=== PATIENT | female | born 1935 ===

== ENCOUNTER 2018-07-12 11:26 | Inpatient (IN) | payer MEDICARE ==
[2018-07-12 12:10] VITALS: BMI 36.6
--- NOTE | 2018-07-12 12:22 | ED PDOC ---
Arrival/HPI - General Chief Complaint: Abnormal Skin Integrity Time Seen by Provider: 07/12/18 11:40 Historian: Family - History of Present Illness Narrative History of Present Illness (Text): 07/12/18 12:21 82 year old female, with past medical history of Alzheimer's, hypertension, menopause, and IVC filter presents to emergency department for rash on both sides of the face and back of the head for the past 4 days. Rash is wore on right. Family notes persistent scratching of face, mostly on right and reports giving her Benadryll and cortisone for the past few days with no significant improvement. Family denies any new food, new detergents or use of new face masks. They also state this has never happened before. HPI limited due to patient's dementia. They deny any complaints of weakness or numbness. No fevers No N/V No AMS Per family pt has been at baseline mentation and physical capacity. No fall or trauma no eye complaints PMD: Dr. José Time/Duration: Other (4 days ) Symptom Onset: Gradual Symptom Course: Unchanged Activities at Onset: Light Context: Home Past Medical History - Provider Review Nursing Documentation Reviewed: Yes - Reproductive Menopause: Yes - Cardiac Hx Cardiac Disorders: Yes Hx Hypertension: Yes - Neurological Hx Neurological Disorder: Yes Hx Alzheimer's Disease: Yes - Psychiatric Hx Substance Use: No Family/Social History - Physician Review Nursing Documentation Reviewed: Yes Family/Social History: Unknown Family HX Smoking Status: Never Smoked Hx Alcohol Use: No Hx Substance Use: No Allergies/Home Meds Allergies/Adverse Reactions: Allergies No Known Allergies Allergy (Verified 07/12/18 12:10) Review of Systems - Physician Review All systems were reviewed & negative as marked: Yes - Review of Systems Systems not reviewed;Unavailable: Dementia Skin: Rash (both sides of face and back of head, itchiness ) Physical Exam Vital Signs Reviewed: Yes Vital Signs Temp Pulse Resp BP Pulse Ox 07/12/18 11:27 97.8 F 68 18 127/70 100 Temperature: Afebrile Blood Pressure: Normal Pulse: Regular Respiratory Rate: Normal Appearance: Positive for: Well-Appearing, Non-Toxic, Comfortable Pain Distress: None Mental Status: Positive for: other (Alert and Oriented x 1) - Systems Exam Head: Present: Atraumatic, Normocephalic Pupils: Present: PERRL Extroacular Muscles: Present: EOMI. No: Gaze Palsy, Entrapment Conjunctiva: Present: Normal. No: Injected Ears: Present: Normal, NORMAL TM, Other (no vesicles). No: TM Bulging Mouth: Present: Moist Mucous Membranes Pharnyx: Present: Normal. No: ERYTHEMA, EXUDATE, TONSILS ENLARGED Nose (External): Present: Atraumatic, Other (no appreciable hutchinsons sign at this time). No: Abrasion, Contusion Nose (Internal): Present: Normal Inspection, No Active Bleeding, Moist Neck: Present: Normal Range of Motion. No: Meningeal Signs, MIDLINE TENDERNESS, JVD, Lymphadenopathy Respiratory/Chest: Present: Clear to Auscultation, Good Air Exchange. No: Respiratory Distress, Accessory Muscle Use Cardiovascular: Present: Regular Rate and Rhythm, Normal S1, S2. No: Murmurs Abdomen: No: Tenderness, Distention, Peritoneal Signs Back: Present: Normal Inspection. No: CVA Tenderness, Midline Tenderness Upper Extremity: Present: Normal Inspection. No: Cyanosis, Edema Lower Extremity: Present: Normal Inspection. No: Edema Neurological: Present: GCS=15, CN II-XII Intact, Speech Normal Skin: Present: Rashes (R sided and mildly L sided facial cluster/crop of vesicles on a red base. pruritic. No crepitus or fluctuance) Psychiatric: Present: Alert, Normal Insight, Normal Concentration, Other (Oriented x 1) Medical Decision Making ED Course and Treatment: 07/12/18 12:41 Impression: 82 year old female presents to emergency department for rash to both sides of the face and back of the head for the past 4 days. No meningeal signs. No AMS per family or change in physical capacity. No fall or trauma. Likely disseminated herpes zoster given B/L appearance. No signs of herpes zoster oticus / opthalmicus at this time. Given age, ALHZD, RF and disseminated likely will require obs. Pt and family agreeable to plan. Plan: -- Benadryl -- Zovirax -- Reassess and disposition Prior Visits: Notes and results from previous visits were reviewed. Progress Notes: 07/12/18 13:09 pending labs, pt in [facility] 07/12/18 13:47 labs unremarkable 3 dermatome involvement appreciate consult w/ Dr. espinoza: to admit to his service for disseminated zoster pt in NAD family and pt agreeable to plan - Scribe Statement The provider has reviewed the documentation as recorded by the Scribe Mariya Holguin All medical record entries made by the Scribe were at my direction and personally dictated by me. I have reviewed the chart and agree that the record accurately reflects my personal performance of the history, physical exam, medical decision making, and the department course for this patient. I have also personally directed, reviewed, and agree with the discharge instructions and disposition. Disposition/Present on Arrival - Present on Arrival Any Indicators Present on Arrival: No History of DVT/PE: No History of Uncontrolled Diabetes: No Urinary Catheter: No History of Decub. Ulcer: No History Surgical Site Infection Following: None - Disposition Have Diagnosis and Disposition been Completed?: Yes Diagnosis: Herpes zoster Disposition: HOSPITALIZED Disposition Time: 13:24 Patient Problems: Current Active Problems Problem Status Onset Herpes zoster Acute Condition: STABLE Discharge Instructions (ExitCare): Shingles (ED) Referrals: Dahlia José MD [Primary Care Provider] - Follow up with primary Forms: [employer] ([place]uan)
[2018-07-12] MEDS ORDERED: DiphenhydrAMINE 12.5 mg/5 ml LIQ UD (5 ml) PO STA (12:25)
[2018-07-12] MEDS ORDERED: ACYCLOVIR IV ONE (12:30)
[2018-07-12] MEDS ORDERED: SODIUM CHLORIDE 0.9% IV ONE (12:30)
[2018-07-12 13:28] LABS: BASO # 0.02 K/mm3 (0.0-2.0); BASO % 0.3 % (0.0-3.0); EOS # 0.2 (0.0-0.7); EOS % 2.7 % (1.5-5.0); HEMOGLOBIN 13.6 g/dL (12.0-16.0); LYMPH # 2.2 (1.2-3.4); MEAN CELL VOLUME 96.2 fl (80.0-105.0); MEAN CORPUSCULAR HEMOGLOBIN 32.2 pg (25.0-35.0); MEAN CORPUSCULAR HGB CONC 33.5 g/dl (31.0-37.0); MEAN PLATELET VOLUME 10.1 fl (7.0-11.0); MONO # 0.6 (0.1-0.6); MONO % 8.2 % (1.0-6.0); RBC 4.22 10^6/uL (3.5-6.1); RED CELL DISTRIBUTION WIDTH 14.5 % (11.5-14.5); WHITE BLOOD COUNT 7.7 10^3/uL (4.5-11.0)
[2018-07-12 13:40] LABS: ALBUMIN 3.9 g/dL (3.0-4.8); ALT/SGPT 14 U/L (7-56); AST/SGOT 22 U/L (14-36); BLOOD UREA NITROGEN 12 mg/dL (7-21); CALCIUM 9.7 mg/dL (8.4-10.5); GFR NON-AFRICAN AMERICAN > 60
--- NOTE | 2018-07-12 14:57 | CP.PCM.HP ---
<Ehsan Motley - Last Filed: 07/12/18 15:10> History of Present Illness - History of Present Illness History of Present Illness: Ehsan Motley, PGY1 Hospital H&P This is an 82 year old female with PMH of history of DVT on eliquis, IVC filter 2014, severe alzheimer's dementia, chronic constipation, HTN presenting to the hospital for 4 day history of B/L skin rash. Patient is nonverbal at baseline and has 24 hour care by family. Daughter is primary ambulatory care coordinator and report's patient developed right sided erythematous vesicular crusty rash 4 days ago which progressively spread to both sides of the face and the posterior neck. Crusting resolved into erythematous lesions. Daughter states patient has never had these symptoms before and has unknown history of chickenpox. Daughter states patient has not had recent travel, recent sickness, sick contacts at home, fevers, vomiting and diarrhea. 12 point ROS limited due to patient status. PMD: Dr. Davies PMH: history of DVT on eliquis, IVC filter 2014, severe alzheimer's dementia, chronic constipation, HTN SH: denies drinking, smoking, and drugs SX: IVC filter in 2015 All: NKDA Meds: eliquis 5mg bid, asa 81mg, digoxin 125mcg, pepcid 20mg, lactulose 10mg, memantine, lopressor 25mg bid, omega 3, risperdal 0.25mg bid FH: father had esophageal cancer, alzheimer's Present on Admission - Present on Admission Any Indicators Present on Admission: No Past Patient History - Past Social History Smoking Status: Never Smoked - CARDIAC Hx Cardiac Disorders: Yes Hx Hypertension: Yes - NEUROLOGICAL Hx Neurological Disorder: Yes Hx Alzheimer's Disease: Yes - PSYCHIATRIC Hx Substance Use: No - SURGICAL HISTORY Hx Surgeries: No Meds Allergies/Adverse Reactions: Allergies Allergy/AdvReac Type Severity Reaction Status Date / Time No Known Allergies Allergy Verified 07/12/18 12:10 Physical Exam - Constitutional Appears: No Acute Distress, Confused - Head Exam Head Exam: ATRAUMATIC, NORMAL INSPECTION - Eye Exam Eye Exam: PERRL Pupil Exam: PERRL - ENT Exam ENT Exam: Mucous Membranes Moist Additional comments: R > L facial erythematous confluent lesions on papular base. Non draining/bleeding. Lesions extend to posterior neck. No crusting noted. - Respiratory Exam Respiratory Exam: Accessory Muscle Use, Clear to Auscultation Bilateral. absent: Wheezes, Respiratory Distress - Cardiovascular Exam Cardiovascular Exam: REGULAR RHYTHM, +S1, +S2 - GI/Abdominal Exam GI & Abdominal Exam: Soft. absent: Guarding, Hernia, Tenderness Additional comments: globular abdomen - Extremities Exam Extremities exam: Positive for: pedal pulses present. Negative for: calf tenderness, tenderness Additional comments: +1 B/L LE swelling - Neurological Exam Neurological exam: Alert, CN II-XII Intact, Oriented x3 - Skin Skin Exam: Dry, Warm Results - Vital Signs Recent Vital Signs: Last Vital Signs Temp 97.8 F 07/12/18 11:27 Pulse 68 07/12/18 11:27 Resp 18 07/12/18 11:27 BP 127/70 07/12/18 11:27 Pulse Ox 100 07/12/18 11:27 - Labs Result Diagrams: 07/12/18 13:24 07/12/18 13:24 Labs: Laboratory Results - last 24 hr 07/12/18 07/12/18 13:24 13:24 WBC 7.7 RBC 4.22 Hgb 13.6 Hct 40.6 MCV 96.2 MCH 32.2 MCHC 33.5 RDW 14.5 Plt Count 274 MPV 10.1 Neut % (Auto) 59.8 Lymph % (Auto) 29.0 [place] % (Auto) 8.2 H Eos % (Auto) 2.7 Baso % (Auto) 0.3 Lymph # (Auto) 2.2 [place] # (Auto) 0.6 Eos # (Auto) 0.2 Baso # (Auto) 0.02 Absolute Neuts (auto) 4.61 Sodium 138 Potassium 4.4 Chloride 101 Carbon Dioxide 27 Anion Gap 15 BUN 12 Creatinine 0.6 L Est GFR ( Amer) > 60 Est GFR (Non-Af Amer) > 60 Random Glucose 113 H Calcium 9.7 Total Bilirubin 0.3 AST 22 ALT 14 Alkaline Phosphatase 97 Total Protein 7.6 Albumin 3.9 Globulin 3.7 Albumin/Globulin Ratio 1.0 L Assessment & Plan - Assessment and Plan (Free Text) Assessment: This is an 82 year old female with PMH of history of DVT on eliquis, IVC filter 2014, severe alzheimer's dementia, chronic constipation, HTN presenting to the hospital for 4 day history of B/L skin rash. Plan: Facial rash -consider shingles vs dermatitis -start acyclovir -start vancomycin -procal pending -ID on consult -afebrile, no WBC noted Hx of DVT -continue eliquis Hx of HTN -continue loppressor Hx of Alzheimer's -continue memantine Hx of Constipation -continue lactulose DVT PPX Patient seen and case discussed with attending, Dr. Garduno <Macie Garduno - Last Filed: 07/13/18 16:01> Results - Vital Signs Recent Vital Signs: Last Vital Signs Temp 99.0 F 07/13/18 14:00 Pulse 98 H 07/13/18 14:00 Resp 20 07/13/18 14:00 BP 120/70 07/13/18 14:00 Pulse Ox 98 07/13/18 14:00 - Labs Result Diagrams: 07/13/18 06:30 07/13/18 06:30 Labs: Laboratory Results - last 24 hr 07/12/18 07/13/18 07/13/18 13:24 06:30 06:30 WBC 7.3 RBC 3.84 Hgb 12.1 Hct 36.7 MCV 95.6 MCH 31.5 MCHC 33.0 RDW 14.6 H Plt Count 271 MPV 10.0 Neut % (Auto) 66.8 Lymph % (Auto) 25.2 [place] % (Auto) 5.8 Eos % (Auto) 1.9 Baso % (Auto) 0.3 Lymph # (Auto) 1.8 [place] # (Auto) 0.4 Eos # (Auto) 0.1 Baso # (Auto) 0.02 Absolute Neuts (auto) 4.87 Sodium 138 Potassium 4.1 Chloride 104 Carbon Dioxide 28 Anion Gap 11 BUN 13 Creatinine 0.6 L Est GFR ( Amer) > 60 Est GFR (Non-Af Amer) > 60 Random Glucose 112 H Calcium 8.9 Phosphorus 3.9 Magnesium 1.8 Total Bilirubin 0.3 AST 20 ALT 18 Alkaline Phosphatase 86 Total Protein 6.4 Albumin 3.0 Globulin 3.3 Albumin/Globulin Ratio 0.9 L Procalcitonin < 0.05 L TSH 3rd Generation 07/13/18 06:30 WBC RBC Hgb Hct MCV MCH MCHC RDW Plt Count MPV Neut % (Auto) Lymph % (Auto) [place] % (Auto) Eos % (Auto) Baso % (Auto) Lymph # (Auto) [place] # (Auto) Eos # (Auto) Baso # (Auto) Absolute Neuts (auto) Sodium Potassium Chloride Carbon Dioxide Anion Gap BUN Creatinine Est GFR ( Amer) Est GFR (Non-Af Amer) Random Glucose Calcium Phosphorus Magnesium Total Bilirubin AST ALT Alkaline Phosphatase Total Protein Albumin Globulin Albumin/Globulin Ratio Procalcitonin TSH 3rd Generation 0.23 L Attending/Attestation - Attestation I have personally seen and examined this patient.: Yes I have fully participated in the care of the patient.: Yes I have reviewed all pertinent clinical information: Yes Notes (Text): Attending note: Patient seen and examined with resident in ER. Patient's daughter by the bedside. Patient has advanced dementia. History from patient's daughter Patient does not communicate. This is an 82 year old female with PMH of history of DVT on eliquis, IVC filter 2014, severe alzheimer's dementia, chronic constipation, HTN presenting to the hospital for 4 day history of B/L skin rash. 1. Bilateral facial cellulitis; according to patient's daughter patient has vesicles and crusting. Started on IV acyclovir. Placed on contact and airborne precautions. ID evaluation requested. Some 2. Cellulitis ; continue IV vancomycin . 3. Dementia; patient does not communicate . Daughter is the caregiver. Continue Namenda. 4. A. fib; continue Eliquis. Continue aspirin, metoprolol and digoxin. Monitor patient closely. Upon discharge patient will follow up with PMD Dr. José. 07/13/18 16:00
[2018-07-12] MEDS ORDERED: Vancomycin 1gm in NS 250ml 1 GM/250 ML BAG IVPB SCH (15:15)
[2018-07-12] MEDS: Omega-3-Acid Ethyl Esters 1 GM Cap PO SCH (17:17)
[2018-07-12] MEDS ORDERED: Influenza Vaccine 60 mcg/0.5 mL SYR (4YR UP) IM ONE (17:25)
[2018-07-12] MEDS ORDERED: Pneumococcal 23-Valent Vaccine IM ONE (17:25)
[2018-07-13 07:52] LABS: BASO # 0.02 K/mm3 (0.0-2.0); BASO % 0.3 % (0.0-3.0); EOS # 0.1 (0.0-0.7); EOS % 1.9 % (1.5-5.0); HEMOGLOBIN 12.1 g/dL (12.0-16.0); LYMPH # 1.8 (1.2-3.4); LYMPH % 25.2 % (22.0-35.0); MEAN CELL VOLUME 95.6 fl (80.0-105.0); MEAN CORPUSCULAR HEMOGLOBIN 31.5 pg (25.0-35.0); MONO # 0.4 (0.1-0.6); MONO % 5.8 % (1.0-6.0); RBC 3.84 10^6/uL (3.5-6.1); RED CELL DISTRIBUTION WIDTH 14.6 % (11.5-14.5); WHITE BLOOD COUNT 7.3 10^3/uL (4.5-11.0)
[2018-07-13 08:12] LABS: ALB/GLOB RATIO 0.9 (1.1-1.8); ALT/SGPT 18 U/L (7-56); AST/SGOT 20 U/L (14-36); BLOOD UREA NITROGEN 13 mg/dL (7-21); CALCIUM 8.9 mg/dL (8.4-10.5); GFR NON-AFRICAN AMERICAN > 60
[2018-07-13] MEDS ORDERED: Vancomycin 1gm in NS 250ml 1 GM/250 ML BAG IVPB SCH (10:00)
[2018-07-13] MEDS ORDERED: Magnesium Citrate Oral SOL (300 ml) PO ONE ×2 (10:55→13:00)
[2018-07-13] MEDS: Digoxin 125 mcg (0.125 mg) Tab PO SCH (10:58)
[2018-07-13] MEDS: Omega-3-Acid Ethyl Esters 1 GM Cap PO SCH ×2 (11:00→19:11)
--- NOTE | 2018-07-13 11:20 | CP.PCM.CON ---
History of Present Illness - History of Present Illness History of Present Illness: 82 year old female with PMH of DVT S/P IVC filter placement, severe dementia, chronic constipation, HTN, obesity with BMI 37 was brought in to [facility] [place] because of a rash that started on the right side of the face of the patient. As per family and architecture manager, they noticed that the rash eventually developed into some fluid filled lesions and reached the back of her head, and possible to other side of the face. She had no fever at home but developed a low grade fever during this admission. She has no cough, no vomiting, no loss of consciousness, no diarrhea as per the family. Infectious Diseases consult is requested to further evaluate and manage. Full ROS is unobtainable because of the patient's dementia. Review of Systems - Review of Systems All systems: reviewed and no additional remarkable complaints except (as per HPI) Past Patient History - Past Social History Smoking Status: Never Smoked - CARDIAC Hx Cardiac Disorders: Yes Hx Hypercholesterolemia: Yes Hx Hypertension: Yes Other/Comment: dvt on eliquis ivc filter 2014 - PULMONARY Hx Respiratory Disorders: No - NEUROLOGICAL Hx Neurological Disorder: Yes Hx Alzheimer's Disease: Yes Hx Dementia: Yes - HEENT Hx HEENT Problems: Yes Hx Difficulty Chewing: Yes (eats puree diet) - RENAL Hx Chronic Kidney Disease: No - ENDOCRINE/METABOLIC Hx Endocrine Disorders: No - HEMATOLOGICAL/ONCOLOGICAL Hx Blood Disorders: No - INTEGUMENTARY Hx Dermatological Problems: Yes Other/Comment: right side facial red vesicular crusty rash started 4 days ago and spread to left side of face and back of neck, crusty rash now red lesions, rash is itchy - MUSCULOSKELETAL/RHEUMATOLOGICAL Hx Falls: No - GASTROINTESTINAL Hx Gastrointestinal Disorders: Yes (obese, chronic constipation) Other/Comment: eats puree diet - GENITOURINARY/GYNECOLOGICAL Hx Genitourinary Disorders: Yes Hx Incontinence: Yes (at times of urine and stool) Other/Comment: pt wears depends for accidents, family asks her if she has to go to the bathroom and they take her, sometimes she goes and sometimes she doesn't - PSYCHIATRIC Hx Substance Use: No - SURGICAL HISTORY Hx Surgeries: Yes (ivc filter 2014) Meds Allergies/Adverse Reactions: Allergies Allergy/AdvReac Type Severity Reaction Status Date / Time No Known Allergies Allergy Verified 07/12/18 12:10 - Medications Medications: Current Medications Apixaban (Eliquis) 5 mg PO BID [facility]; Protocol Last Admin: 07/12/18 17:17 Dose: 5 mg Aspirin (Aspirin Chewable) 81 mg PO DAILY [facility] Digoxin (Digoxin) 0.125 mg PO DAILY [facility] Famotidine (Pepcid) 20 mg PO DAILY [facility] Acyclovir 750 mg/ Sodium (Chloride) 100 mls @ 100 mls/hr IV Q8 [facility]; Protocol Last Admin: 07/13/18 05:28 Dose: 100 mls/hr Vancomycin HCl (Vancomycin 1gm) 1 gm in 250 mls @ 167 mls/hr IVPB DAILY [facility]; Protocol Last Admin: 07/12/18 17:17 Dose: 167 mls/hr Lactulose (Enulose) 10 gm PO DAILY [facility] Metoprolol Tartrate (Lopressor) 25 mg PO BID [facility] Last Admin: 07/12/18 17:17 Dose: 25 mg Levocetirizine Dihydrochloride [ Xyzal] 5 Mg (Home Med) 5 mg PO DAILY [facility] Memantine Hcl [ Memantine Hcl Er] 28 Mg (Home Med) 28 mg PO DAILY [facility] Aruum-2-Qpah Ethyl Esters (Lovaza) 1 gm PO BID [facility] Last Admin: 07/12/18 17:17 Dose: 1 gm Risperidone (Risperdal Tab) 0.25 mg PO BID [facility]; Protocol Last Admin: 07/12/18 17:17 Dose: 0.25 mg Physical Exam - Constitutional Appears: Chronically Ill - Head Exam Head Exam: NORMAL INSPECTION Additional comments: eye area to the anabaptist with erythematous rash, with some open lesions, no vesicles noted, more on the right side than the left side - Neck Exam Neck exam: Negative for: Lymphadenopathy, Meningismus - Respiratory Exam Respiratory Exam: Decreased Breath Sounds - Cardiovascular Exam Cardiovascular Exam: +S1, +S2 - GI/Abdominal Exam GI & Abdominal Exam: Soft. absent: Tenderness Results - Vital Signs Recent Vital Signs: Last Vital Signs Temp 100.5 F H 07/13/18 06:00 Pulse 114 H 07/13/18 06:00 Resp 20 07/13/18 06:00 BP 115/50 L 07/13/18 06:00 Pulse Ox 95 07/13/18 06:00 - Labs Result Diagrams: 07/13/18 06:30 07/13/18 06:30 Labs: Laboratory Results - last 24 hr 04/09/2407/12/18 07/12/18 13:24 13:24 13:24 WBC 7.7 RBC 4.22 Hgb 13.6 Hct 40.6 MCV 96.2 MCH 32.2 MCHC 33.5 RDW 14.5 Plt Count 274 MPV 10.1 Neut % (Auto) 59.8 Lymph % (Auto) 29.0 [place] % (Auto) 8.2 H Eos % (Auto) 2.7 Baso % (Auto) 0.3 Lymph # (Auto) 2.2 [place] # (Auto) 0.6 Eos # (Auto) 0.2 Baso # (Auto) 0.02 Absolute Neuts (auto) 4.61 Sodium 138 Potassium 4.4 Chloride 101 Carbon Dioxide 27 Anion Gap 15 BUN 12 Creatinine 0.6 L Est GFR ( Amer) > 60 Est GFR (Non-Af Amer) > 60 Random Glucose 113 H Calcium 9.7 Total Bilirubin 0.3 AST 22 ALT 14 Alkaline Phosphatase 97 Total Protein 7.6 Albumin 3.9 Globulin 3.7 Albumin/Globulin Ratio 1.0 L Procalcitonin < 0.05 L Assessment & Plan - Assessment and Plan (Free Text) Plan: Assessment consider facial skin and skin structure infection, R/O viral enxanthem, R/O herpes zoster DVT S/P IVC filter placement severe dementia chronic constipation HTN obesity with BMI 37 Plan Started Vancomycin and Acyclovir and patient is on airborne precautions for now; will get VZV IgG will monitor clinical response, check blood cx
[2018-07-13] MEDS: MEMANTINE HCL 28 MG PO SCH (13:10)
[2018-07-13] MEDS: Levocetirizine Dihydrochloride [Xyzal] 5 MG (HOME MED) PO SCH (13:10)
--- NOTE | 2018-07-13 16:22 | CP.PCM.PN ---
<Ehsan Motley - Last Filed: 07/13/18 16:17> Subjective - Date & Time of Evaluation Date of Evaluation: 07/13/18 Time of Evaluation: 09:30 - Subjective Subjective: Ehsan Motley PGY1 Medicine Progress Note Patient seen and examined at bedside this morning. No acute events reported overnight. Patient is nonverbal at baseline and ROS is limited at this time. Objective - Vital Signs/Intake and Output Vital Signs (last 24 hours): Temp Pulse Resp BP Pulse Ox 99.0 F 98 H 20 120/70 98 07/13/18 14:00 07/13/18 14:00 07/13/18 14:00 07/13/18 14:00 07/13/18 14:00 Intake and Output: 07/13/18 07/13/18 06:59 18:59 Intake Total 740 Balance 740 - Medications Medications: Current Medications Apixaban (Eliquis) 5 mg PO BID [facility]; Protocol Last Admin: 07/13/18 10:59 Dose: 5 mg Aspirin (Aspirin Chewable) 81 mg PO DAILY [facility] Last Admin: 07/13/18 10:58 Dose: 81 mg Digoxin (Digoxin) 0.125 mg PO DAILY [facility] Last Admin: 07/13/18 10:58 Dose: 0.125 mg Famotidine (Pepcid) 20 mg PO DAILY [facility] Last Admin: 07/13/18 11:00 Dose: 20 mg Acyclovir 750 mg/ Sodium (Chloride) 100 mls @ 100 mls/hr IV Q8 [facility]; Protocol Last Admin: 07/13/18 15:48 Dose: 100 mls/hr Vancomycin HCl (Vancomycin 1gm) 1 gm in 250 mls @ 167 mls/hr IVPB BID [facility]; Protocol Last Admin: 07/13/18 11:01 Dose: 167 mls/hr Lactulose (Enulose) 10 gm PO DAILY [facility] Last Admin: 07/13/18 10:56 Dose: 10 gm Metoprolol Tartrate (Lopressor) 25 mg PO BID [facility] Last Admin: 07/13/18 10:59 Dose: 25 mg Levocetirizine Dihydrochloride [ Xyzal] 5 Mg (Home Med) 5 mg PO DAILY [facility] Last Admin: 07/13/18 13:10 Dose: 5 mg Memantine Hcl [ Memantine Hcl Er] 28 Mg (Home Med) 28 mg PO DAILY [facility] Last Admin: 07/13/18 13:10 Dose: 28 mg Fbheh-9-Vomg Ethyl Esters (Lovaza) 1 gm PO BID [facility] Last Admin: 07/13/18 11:00 Dose: 1 gm Risperidone (Risperdal Tab) 0.25 mg PO BID [facility]; Protocol Last Admin: 07/13/18 11:01 Dose: 0.25 mg - Labs Labs: 07/13/18 06:30 07/13/18 06:30 Physical Exam - Constitutional Appears: No Acute Distress, Confused - Head Exam Head Exam: ATRAUMATIC, NORMAL INSPECTION - Eye Exam Eye Exam: PERRL Pupil Exam: PERRL - ENT Exam ENT Exam: Mucous Membranes Moist Additional comments: R > L facial erythematous confluent lesions on papular base. Non draining/bleeding. Lesions extend to posterior neck. No crusting noted. - Respiratory Exam Respiratory Exam: Accessory Muscle Use, Clear to Auscultation Bilateral. absent: Wheezes, Respiratory Distress - Cardiovascular Exam Cardiovascular Exam: REGULAR RHYTHM, +S1, +S2 - GI/Abdominal Exam GI & Abdominal Exam: Soft. absent: Guarding, Hernia, Tenderness Additional comments: globular abdomen - Extremities Exam Extremities exam: Positive for: pedal pulses present. Negative for: calf tenderness, tenderness Additional comments: +1 B/L LE swelling - Neurological Exam Neurological exam: Alert, CN II-XII Intact, Oriented x3 - Skin Skin Exam: Dry, Warm Assessment and Plan - Assessment and Plan (Free Text) Assessment: This is an 82 year old female with PMH of history of DVT on eliquis, IVC filter 2014, severe alzheimer's dementia, chronic constipation, HTN presenting to the hospital for 4 day history of B/L skin rash. Plan: Facial rash -consider facial skin infection, rule out herpes zoster, viral exanthem -continue vancomycin and acyclovir day 2 -VZW IgG pending -blood culture pending -procal low -ID on consult -Tmax of 100.5F overnight, no WBC count noted -hydrocortisone cream on rash Abnormal Thyroid -Low TSH -Free T4 pending Hx of DVT -continue eliquis Hx of HTN -continue loppressor Hx of Alzheimer's -continue memantine Hx of Constipation -continue lactulose -started mag citrate DVT PPX Patient seen and case discussed with attending, Dr. Garduno <Macie Garduno - Last Filed: 07/13/18 16:32> Objective - Vital Signs/Intake and Output Vital Signs (last 24 hours): Temp Pulse Resp BP Pulse Ox 99.0 F 98 H 20 120/70 98 07/13/18 14:00 07/13/18 14:00 07/13/18 14:00 07/13/18 14:00 07/13/18 14:00 Intake and Output: 07/13/18 07/13/18 06:59 18:59 Intake Total 740 Balance 740 - Medications Medications: Current Medications Apixaban (Eliquis) 5 mg PO BID [facility]; Protocol Last Admin: 07/13/18 10:59 Dose: 5 mg Aspirin (Aspirin Chewable) 81 mg PO DAILY [facility] Last Admin: 07/13/18 10:58 Dose: 81 mg Digoxin (Digoxin) 0.125 mg PO DAILY [facility] Last Admin: 07/13/18 10:58 Dose: 0.125 mg Famotidine (Pepcid) 20 mg PO DAILY [facility] Last Admin: 07/13/18 11:00 Dose: 20 mg Hydrocortisone (Hydrocortisone 0.5%) 0 gm TOP BID [facility] Acyclovir 750 mg/ Sodium (Chloride) 100 mls @ 100 mls/hr IV Q8 [facility]; Protocol Last Admin: 07/13/18 15:48 Dose: 100 mls/hr Vancomycin HCl (Vancomycin 1gm) 1 gm in 250 mls @ 167 mls/hr IVPB BID [facility]; Protocol Last Admin: 07/13/18 11:01 Dose: 167 mls/hr Lactulose (Enulose) 10 gm PO DAILY [facility] Last Admin: 07/13/18 10:56 Dose: 10 gm Metoprolol Tartrate (Lopressor) 25 mg PO BID [facility] Last Admin: 07/13/18 10:59 Dose: 25 mg Levocetirizine Dihydrochloride [ Xyzal] 5 Mg (Home Med) 5 mg PO DAILY [facility] Last Admin: 07/13/18 13:10 Dose: 5 mg Memantine Hcl [ Memantine Hcl Er] 28 Mg (Home Med) 28 mg PO DAILY [facility] Last Admin: 07/13/18 13:10 Dose: 28 mg Oxnpm-4-Zbjk Ethyl Esters (Lovaza) 1 gm PO BID [facility] Last Admin: 07/13/18 11:00 Dose: 1 gm Risperidone (Risperdal Tab) 0.25 mg PO BID [facility]; Protocol Last Admin: 07/13/18 11:01 Dose: 0.25 mg - Labs Labs: 07/13/18 06:30 07/13/18 06:30 Attending/Attestation - Attestation I have personally seen and examined this patient.: Yes I have fully participated in the care of the patient.: Yes I have reviewed all pertinent clinical information, including history, physical exam and plan: Yes Notes (Text): 07/13/18 16:30 Attending note: Patient seen and examined with resident. Patient's daughter by the bedside. Patient has advanced dementia. History from patient's daughter Patient is alert and awake. Not in any acute distress Had a T-max of 100.5 today. This is an 82 year old female with PMH of history of DVT on eliquis, IVC filter 2014, severe alzheimer's dementia, chronic constipation, HTN presenting to the hospital for 4 day history of B/L skin rash. 1. Bilateral facial cellulitis; according to patient's daughter patient has vesicles and crusting. Started on IV acyclovir. Placed on contact and airborne precautions. ID evaluation appreciated. Pro-Jorge Alberto is negative. No leukocytosis. 2. Cellulitis ; continue IV vancomycin . Blood cultures pending. 3. Dementia; patient does not communicate . Daughter is the caregiver. Continue Namenda. 4. A. fib; continue Eliquis. Continue aspirin, metoprolol and digoxin. Monitor patient closely. Upon discharge patient will follow up with PMD Dr. José.
[2018-07-13] MEDS: HYDROCORTISONE 0.5% TOP SCH (19:16)
--- NOTE | 2018-07-13 20:35 | CARD ---
APPROVED REPORT Date of service: 07/13/2018 EKG Measurement Heart [id number] <Conclusion> Sinus tachycardia Nonspecific ST and T wave abnormality Abnormal ECG
[2018-07-13] MEDS: Vancomycin 1gm in NS 250ml 1 GM/250 ML BAG IVPB SCH (22:45)
[2018-07-14 08:13] LABS: BASO # 0.01 K/mm3 (0.0-2.0); BASO % 0.1 % (0.0-3.0); EOS # 0.2 (0.0-0.7); EOS % 2.9 % (1.5-5.0); HEMOGLOBIN 11.2 g/dL (12.0-16.0); LYMPH # 2.4 (1.2-3.4); LYMPH % 31.4 % (22.0-35.0); MEAN CELL VOLUME 95.8 fl (80.0-105.0); MEAN CORPUSCULAR HEMOGLOBIN 31.4 pg (25.0-35.0); MEAN CORPUSCULAR HGB CONC 32.7 g/dl (31.0-37.0); MEAN PLATELET VOLUME 9.8 fl (7.0-11.0); MONO # 0.5 (0.1-0.6); MONO % 6.1 % (1.0-6.0); RBC 3.57 10^6/uL (3.5-6.1); RED CELL DISTRIBUTION WIDTH 14.4 % (11.5-14.5); WHITE BLOOD COUNT 7.6 10^3/uL (4.5-11.0)
[2018-07-14 08:27] LABS: ALT/SGPT 14 U/L (7-56); AST/SGOT 20 U/L (14-36); BLOOD UREA NITROGEN 8 mg/dL (7-21); CALCIUM 8.2 mg/dL (8.4-10.5); GFR NON-AFRICAN AMERICAN > 60
[2018-07-14] MEDS: HYDROCORTISONE 0.5% TOP SCH ×2 (10:00→19:18)
[2018-07-14] MEDS: Omega-3-Acid Ethyl Esters 1 GM Cap PO SCH ×2 (10:00→19:15)
[2018-07-14] MEDS: Digoxin 125 mcg (0.125 mg) Tab PO SCH (12:14)
[2018-07-14] MEDS: Vancomycin 1gm in NS 250ml 1 GM/250 ML BAG IVPB SCH ×2 (12:20→22:52)
[2018-07-14] MEDS: Levocetirizine Dihydrochloride [Xyzal] 5 MG (HOME MED) PO SCH (12:21)
[2018-07-14] MEDS: MEMANTINE HCL 28 MG PO SCH (12:21)
[2018-07-14] MEDS: POLYETHYLENE GLYCOL 3350 17 GM/Dose PACKET PO SCH (12:55)
--- NOTE | 2018-07-14 15:18 | CP.PCM.PN ---
Subjective - Date & Time of Evaluation Date of Evaluation: 07/14/18 Time of Evaluation: 09:00 - Subjective Subjective: Pt was seen and examined this AM at bedside. Pt is non-verbal at baseline. Overnight pt had noted urinary retention and baltazar catheter was placed. Pts daughter is at bedside and states that the pts rash is much better than yesterday. Pts daughter also states that the pt is constipated and that whenever she gets constipated at home she has issues with urination. Objective - Vital Signs/Intake and Output Vital Signs (last 24 hours): Temp Pulse Resp BP Pulse Ox 99.7 F H 85 20 96/54 L 93 L 07/14/18 06:00 07/14/18 06:00 07/14/18 06:00 07/14/18 06:00 07/14/18 06:00 Intake and Output: 07/14/18 07/14/18 06:59 18:59 Intake Total 540 600 Output Total 3225 400 Balance -2685 200 - Medications Medications: Current Medications Apixaban (Eliquis) 5 mg PO BID [facility]; Protocol Last Admin: 07/14/18 12:13 Dose: 5 mg Aspirin (Aspirin Chewable) 81 mg PO DAILY [facility] Last Admin: 07/14/18 12:13 Dose: 81 mg Digoxin (Digoxin) 0.125 mg PO DAILY [facility] Last Admin: 07/14/18 12:14 Dose: 0.125 mg Famotidine (Pepcid) 20 mg PO DAILY [facility] Last Admin: 07/14/18 12:13 Dose: 20 mg Hydrocortisone (Hydrocortisone 0.5%) 0 gm TOP BID [facility] Last Admin: 07/13/18 19:16 Dose: 1 oin Acyclovir 750 mg/ Sodium (Chloride) 100 mls @ 100 mls/hr IV Q8 [facility]; Protocol Last Admin: 07/14/18 05:35 Dose: 100 mls/hr Vancomycin HCl (Vancomycin 1gm) 1 gm in 250 mls @ 167 mls/hr IVPB BID [facility]; Pr otocol Last Admin: 07/14/18 12:20 Dose: 167 mls/hr Lactulose (Enulose) 10 gm PO DAILY [facility] Last Admin: 07/14/18 12:14 Dose: 10 gm Metoprolol Tartrate (Lopressor) 25 mg PO BID [facility] Last Admin: 07/14/18 12:13 Dose: 25 mg Levocetirizine Dihydrochloride [ Xyzal] 5 Mg (Home Med) 5 mg PO DAILY [facility] Last Admin: 07/14/18 12:21 Dose: 5 mg Memantine Hcl [ Memantine Hcl Er] 28 Mg (Home Med) 28 mg PO DAILY [facility] Last Admin: 07/14/18 12:21 Dose: 28 mg Ubdmr-2-Gilk Ethyl Esters (Lovaza) 1 gm PO BID [facility] Last Admin: 07/13/18 19:11 Dose: 1 gm Polyethylene Glycol (Miralax) 17 gm PO DAILY [facility] Last Admin: 07/14/18 12:55 Dose: Not Given Risperidone (Risperdal Tab) 0.25 mg PO BID [facility]; Protocol Last Admin: 07/14/18 12:14 Dose: 0.25 mg - Labs Labs: 07/14/18 08:00 07/14/18 08:00 - Constitutional Appears: Other (non-verbal) - Head Exam Additional comments: R and L facial erythematous confluent lesions on papular base. Non draining/bleeding. Lesions extend to posterior neck. No crusting noted. Rash not noted to be following specific dermatomal distribution. - Eye Exam Eye Exam: EOMI, Normal appearance, PERRL - Respiratory Exam Respiratory Exam: Clear to Ausculation Bilateral, NORMAL BREATHING PATTERN. absent: Accessory Muscle Use, Chest Wall Tenderness, Rales, Rhonchi, Wheezes - Cardiovascular Exam Cardiovascular Exam: REGULAR RHYTHM, +S1, +S2. absent: JVD - GI/Abdominal Exam GI & Abdominal Exam: Soft, Normal Bowel Sounds. absent: Firm, Guarding, Rigid, Rebound - Extremities Exam Extremities Exam: Normal Capillary Refill, Normal Inspection - Back Exam Back Exam: NORMAL INSPECTION. absent: CVA tenderness (L), CVA tenderness (R) - Neurological Exam Neurological Exam: Alert, Awake, Oriented x3 - Psychiatric Exam Psychiatric exam: Normal Affect, Normal Mood. absent: Agitated, Anxious - Skin Skin Exam: Dry, Normal Color, Warm Assessment and Plan - Assessment and Plan (Free Text) Assessment: This is an 82 year old female with PMH of history of DVT on eliquis, IVC filter 2014, severe alzheimer's dementia, chronic constipation, HTN presenting to the hospital for 4 day history of B/L skin rash. Plan: Facial rash -consider facial skin infection, rule out herpes zoster, viral exanthem -continue vancomycin and acyclovir day 3 -VZW IgG pending -blood culture (-) after 24 hours -procal low -ID on consult -Tmax of 100.5F @ 6 AM yesterday, will cont to monitor -hydrocortisone cream on rash Abnormal Thyroid -Low TSH -Free T4 1.33 wnl -F/u T3 Hx of DVT -continue eliquis Hx of HTN -continue loppressor Hx of Alzheimer's -continue memantine Hx of Constipation -continue lactulose -started mag citrate Urinary Retention: Likely 2/2 constipation - Baltazar inserted overnight due to 900cc bladder scan - Pt had bowel movement today and baltazar was d/rochelle. Will f/u with voiding trial DVT PPX Patient seen and case discussed with attending, Dr. Theodore Murrell, PGY1
[2018-07-14 17:47] LABS: PH,URINE 7.5 (4.7-8.0); URINE BILIRUBIN NEGATIVE (NEGATIVE); URINE BLOOD TRACE-INTACT (NEGATIVE); URINE GLUCOSE (UA) NEGATIVE (NEGATIVE); URINE LEUKOCYTE ESTERASE SMALL Leu/uL (NEGATIVE); URINE PROTEIN NEGATIVE mg/dL (<30 mg/dL); URINE UROBILINOGEN 0.2 E.U./dL (<1 E.U./dL)
[2018-07-14 18:01] LABS: URINE APPEARANCE CLEAR (CLEAR); URINE COLOR YELLOW (YELLOW)
--- NOTE | 2018-07-15 04:24 | PN ---
DATE: 07/14/2018 SUBJECTIVE: The patient is in bed, in no acute distress. PHYSICAL EXAMINATION: VITAL SIGNS: Temperature is 99, blood pressure is 110/70, respiratory rate of 18, heart rate of 87. HEENT: Unremarkable. NECK: Supple. LUNGS: Have decreased breath sounds. HEART: Normal, S1 and S2. ABDOMEN: Soft. LABORATORY DATA: Reveals a white count of 7.6 and hemoglobin is noted. Chemistries are reviewed. Urinalysis is noted. Microbiology reveals blood cultures are negative. ASSESSMENT AND PLAN: An 82-year-old female who was seen in [facility], bed 1, earlier today with facial skin infection, appears to be improving as per her daughter who was in the room. Currently, on acyclovir and vancomycin. We will follow with you. Zelalem Zapien MD
[2018-07-15 07:45] VITALS: BP 100/58; PULSE 78; RESP 17; TEMP 97.8; O2SAT 98
[2018-07-15 08:05] LABS: BASO # 0.02 K/mm3 (0.0-2.0); BASO % 0.3 % (0.0-3.0); EOS # 0.3 (0.0-0.7); EOS % 4.3 % (1.5-5.0); HEMOGLOBIN 10.9 g/dL (12.0-16.0); LYMPH # 2.6 (1.2-3.4); MEAN CELL VOLUME 96.2 fl (80.0-105.0); MEAN CORPUSCULAR HEMOGLOBIN 31.7 pg (25.0-35.0); MEAN CORPUSCULAR HGB CONC 32.9 g/dl (31.0-37.0); MEAN PLATELET VOLUME 9.8 fl (7.0-11.0); MONO # 0.6 (0.1-0.6); MONO % 8.9 % (1.0-6.0); RBC 3.44 10^6/uL (3.5-6.1); RED CELL DISTRIBUTION WIDTH 14.8 % (11.5-14.5); WHITE BLOOD COUNT 6.8 10^3/uL (4.5-11.0)
[2018-07-15 08:27] LABS: ALB/GLOB RATIO 0.9 (1.1-1.8); ALBUMIN 2.8 g/dL (3.0-4.8); ALT/SGPT 15 U/L (7-56); AST/SGOT 19 U/L (14-36); BLOOD UREA NITROGEN 6 mg/dL (7-21); GFR NON-AFRICAN AMERICAN > 60
[2018-07-15] MEDS: Omega-3-Acid Ethyl Esters 1 GM Cap PO SCH (09:42)
[2018-07-15] MEDS: Digoxin 125 mcg (0.125 mg) Tab PO SCH (09:42)
[2018-07-15] MEDS: Vancomycin 1gm in NS 250ml 1 GM/250 ML BAG IVPB SCH (09:43)
[2018-07-15] MEDS: MEMANTINE HCL 28 MG PO SCH (09:44)
[2018-07-15] MEDS: Levocetirizine Dihydrochloride [Xyzal] 5 MG (HOME MED) PO SCH (09:45)
[2018-07-15] MEDS: HYDROCORTISONE 0.5% TOP SCH (09:45)
[2018-07-15 09:59] VITALS: PULSE 78
[2018-07-15] MEDS: POLYETHYLENE GLYCOL 3350 17 GM/Dose PACKET PO SCH (10:04)
--- NOTE | 2018-07-15 13:23 | CP.PCM.DIS ---
<Karen Murrell - Last Filed: 07/15/18 19:58> Provider - Provider Date of Admission: 07/12/18 13:51 Attending physician: Eben Cortez MD Primary care physician: Dahlia José MD Consults: 07/12/18 15:01 Infectious Disease Consult Routine Comment: Consulting Provider: Omid Rutherford Consulting Physician: Omid Rutherford Reason for Consult: facial rash 07/12/18 16:53 Social Work Referral Routine Comment: d/c plan Physician Instructions: Reason For Exam: assess 07/12/18 17:25 Case Management Referral Routine Comment: daughter primary broke beater operator/platform material handler manager/family Physician Instructions: Reason For Exam: assess Reason for Referral: Discharge Planning Nursing Referral for Wound Care Routine Comment: red painful itchy rash to face and back of neck Physician Instructions: Reason For Exam: assess 07/13/18 03:20 Nursing Referral for Wound Care Routine Comment: Physician Instructions: Reason For Exam: Shingles 07/14/18 05:10 Nursing Referral for Wound Care Routine Comment: Physician Instructions: Reason For Exam: wound eval Time Spent in preparation of Discharge (in minutes): 45 Diagnosis - Discharge Diagnosis (1) Herpes zoster Status: Acute Hospital Course - Lab Results Lab Results: Micro Results 07/13/18 12:00 Blood-Venous Blood Culture - Preliminary NO GROWTH AFTER 48 HOURS 07/13/18 11:30 Blood-Venous Blood Culture - Preliminary NO GROWTH AFTER 48 HOURS Most Recent Lab Values WBC 6.8 10^3/uL (4.5-11.0) 07/15/18 07:45 RBC 3.44 10^6/uL (3.5-6.1) L 07/15/18 07:45 Hgb 10.9 g/dL (12.0-16.0) L 07/15/18 07:45 Hct 33.1 % (36.0-48.0) L 07/15/18 07:45 MCV 96.2 fl (80.0-105.0) 07/15/18 07:45 MCH 31.7 pg (25.0-35.0) 07/15/18 07:45 MCHC 32.9 g/dl (31.0-37.0) 07/15/18 07:45 RDW 14.8 % (11.5-14.5) H 07/15/18 07:45 Plt Count 233 10^3/uL (120.0-450.0) 07/15/18 07:45 MPV 9.8 fl (7.0-11.0) 07/15/18 07:45 Neut % (Auto) 48.5 % (50.0-68.0) L 07/15/18 07:45 Lymph % (Auto) 38.0 % (22.0-35.0) H 07/15/18 07:45 Lanier % (Auto) 8.9 % (1.0-6.0) H 07/15/18 07:45 Eos % (Auto) 4.3 % (1.5-5.0) 07/15/18 07:45 Baso % (Auto) 0.3 % (0.0-3.0) 07/15/18 07:45 Lymph # (Auto) 2.6 (1.2-3.4) 07/15/18 07:45 Lanier # (Auto) 0.6 (0.1-0.6) 07/15/18 07:45 Eos # (Auto) 0.3 (0.0-0.7) 07/15/18 07:45 Baso # (Auto) 0.02 K/mm3 (0.0-2.0) 07/15/18 07:45 Absolute Neuts (auto) 3.29 (1.4-6.5) 07/15/18 07:45 Sodium 139 mmol/L (132-148) 07/15/18 07:45 Potassium 4.1 mmol/L (3.6-5.0) 07/15/18 07:45 Chloride 109 mmol/L (98-107) H 07/15/18 07:45 Carbon Dioxide 28 mmol/L (21-33) 07/15/18 07:45 Anion Gap 7 (10-20) L 07/15/18 07:45 BUN 6 mg/dL (7-21) L 07/15/18 07:45 Creatinine 0.6 mg/dl (0.7-1.2) L 07/15/18 07:45 Est GFR ( Amer) > 60 07/15/18 07:45 Est GFR (Non-Af Amer) > 60 07/15/18 07:45 Random Glucose 102 mg/dL (70-110) 07/15/18 07:45 Calcium 8.0 mg/dL (8.4-10.5) L 07/15/18 07:45 Phosphorus 3.9 mg/dL (2.5-4.5) 07/13/18 06:30 Magnesium 1.8 mg/dL (1.7-2.2) 07/13/18 06:30 Total Bilirubin 0.2 mg/dL (0.2-1.3) 07/15/18 07:45 AST 19 U/L (14-36) 07/15/18 07:45 ALT 15 U/L (7-56) 07/15/18 07:45 Alkaline Phosphatase 70 U/L (38-126) 07/15/18 07:45 Total Protein 5.8 g/dL (5.8-8.3) 07/15/18 07:45 Albumin 2.8 g/dL (3.0-4.8) L 07/15/18 07:45 Globulin 3.0 gm/dL 07/15/18 07:45 Albumin/Globulin Ratio 0.9 (1.1-1.8) L 07/15/18 07:45 Procalcitonin < 0.05 NG/ML (0.19-0.49) L 07/13/18 07:00 Free T4 1.33 ng/dL (0.78-2.19) 07/14/18 08:00 Free T3 pg/mL 3.22 pg/mL (2.77-5.27) 07/14/18 10:25 TSH 3rd Generation 0.23 mIU/mL (0.46-4.68) L 07/13/18 06:30 Urine Color Yellow (YELLOW) 07/14/18 17:30 Urine Appearance Clear (CLEAR) 07/14/18 17:30 Urine pH 7.5 (4.7-8.0) 07/14/18 17:30 Ur Specific [place] <= 1.005 (1.005-1.035) 07/14/18 17:30 Urine Protein Negative mg/dL (<30 mg/dL) 07/14/18 17:30 Urine Glucose (UA) Negative mg/dL (NEGATIVE) 07/14/18 17:30 Urine Ketones Negative mg/dL (NEGATIVE) 07/14/18 17:30 Urine Blood Trace-intact (NEGATIVE) H 07/14/18 17:30 Urine Nitrate Negative (NEGATIVE) 07/14/18 17:30 Urine Bilirubin Negative (NEGATIVE) 07/14/18 17:30 Urine Urobilinogen 0.2 E.U./dL (<1 E.U./dL) 07/14/18 17:30 Ur Leukocyte Esterase Small Pepito/uL (NEGATIVE) H 07/14/18 17:30 Urine RBC 5 - 10 /hpf (0-2) H 07/14/18 17:30 Urine WBC 5 - 10 /hpf (0-6) H 07/14/18 17:30 Ur Epithelial Cells 10 - 12 /hpf (0-5) H 07/14/18 17:30 - Hospital Course Hospital Course: Upon Admission: This is an 82 year old female with PMH of history of DVT on eliquis, IVC filter 2014, severe alzheimer's dementia, chronic constipation, HTN presenting to the hospital for 4 day history of B/L skin rash. Patient is nonverbal at baseline and has 24 hour care by family. Daughter is primary post anesthesia care unit nurse and report's patient developed right sided erythematous vesicular crusty rash 4 days ago which progressively spread to both sides of the face and the posterior neck. Crusting resolved into erythematous lesions. Daughter states patient has never had these symptoms before and has unknown history of chickenpox. Daughter states patient has not had recent travel, recent sickness, sick contacts at home, fevers, vomiting and diarrhea. 12 point ROS limited due to patient status. Hospital Course: Pt was being worked up for suspected VZV infection versus dermatitis/cellulitis. Pt was placed in isolation and was given IV acyclovir and IV Vanc. ID was consulted and continued the pt on the regiment. Blood culture was ordered and negative. Procal low. Pt is afebrile for over 24 hours. Pt was also given hydrocortisone cream. Pt is non-verbal at baseline and has daughter at bedside. Pts daughter states that the pts rash has improved. Pt also states that though initially the steroid cream was helping, she now notices an increase erythema and itching from the pt. Pts rash was noted to be around the eyes, across the cheeks and spreading to the back of the head to neck initially, but now is only located under the eyes. ID has been following the pt and states that the pt is cleared for d/c on PO valcyclovir and augmentin. Pts family was informed of the plan for d/c home and the pts family expressed understanding and agreement with the plan for d/c. All of the questions and concerns of the pts family were addressed prior to d/c. Discharge Exam - Head Exam Head Exam: ATRAUMATIC, NORMOCEPHALIC Additional comments: R and L facial erythematous lesions. Non draining/bleeding. Lesions are now localized to anterior cheeks b/l. No crusting noted. Rash not noted to be following specific dermatomal distribution. - Eye Exam Eye Exam: EOMI, Normal appearance, PERRL - Respiratory Exam Respiratory Exam: Clear to PA & Lateral, NORMAL BREATHING PATTERN, UNREMARKABLE. absent: Accessory Muscle Use, Rales, Rhonchi, Wheezes, Respiratory Distress, Stridor - Cardiovascular Exam Cardiovascular Exam: RRR, +S1, +S2. absent: Gallop, Rubs - GI/Abdominal Exam GI & Abdominal Exam: Normal Bowel Sounds, Soft, Unremarkable. absent: Distended, Firm, Guarding, Tenderness - Extremities Exam Extremities exam: normal inspection - Back Exam Back exam: NORMAL INSPECTION. absent: CVA tenderness (L), CVA tenderness (R) - Neurological Exam Neurological exam: Alert, Oriented x3 - Psychiatric Exam Psychiatric exam: Normal Affect, Normal Mood - Skin Skin Exam: Dry, Normal Color, Warm Additional comments: Pertinent skin findings noted above. Discharge Plan - Discharge Medications Prescriptions: Amoxicillin/Clavulanate [Augmentin 875 MG-125 MG Tab] 1 tab PO Q12 7 Days #14 tab valACYclovir [Valtrex] 1 gm PO BID 7 Days #14 tab - Follow Up Plan Condition: STABLE Disposition: HOME/ ROUTINE Instructions: Smoking: Not Just Harmful to Your Lungs and Heart, Shingles (DC), Skin Rash (DC), Dementia (DC) Additional Instructions: Patient Instructions: 1. Please take home medications as prescribed: You have been given 2 new antibiotics to take at home - Please take the Augmentin 1 tab twice a day by mouth for 7 days and the Valtrex 1gm twice a day by mouth for 7 days. 2. Follow up with your primary care physician and referrals within three to five days from discharge. 3. Please go to the nearest emergency room for evaluation of new or worsening symptoms including but limited to intractable headache, fever, chills, dizziness, chest pain, shortness of breath, abdominal pain, nausea, vomiting, diarrhea, constipation, and urinary symptoms. Referrals: Dahlia José MD [Primary Care Provider] - <Albert Youssef - Last Filed: 07/16/18 08:22> Provider - Provider Date of Admission: 07/12/18 13:51 Attending physician: Eben Cortez MD Primary care physician: Dahlia José MD Consults: 07/12/18 15:01 Infectious Disease Consult Routine Comment: Consulting Provider: Omid Rutherford Consulting Physician: Omid Rutherford Reason for Consult: facial rash 07/12/18 16:53 Social Work Referral Routine Comment: d/c plan Physician Instructions: Reason For Exam: assess 07/12/18 17:25 Case Management Referral Routine Comment: daughter primary broke beater operator/platform material handler manager/family Physician Instructions: Reason For Exam: assess Reason for Referral: Discharge Planning Nursing Referral for Wound Care Routine Comment: red painful itchy rash to face and back of neck Physician Instructions: Reason For Exam: assess 07/13/18 03:20 Nursing Referral for Wound Care Routine Comment: Physician Instructions: Reason For Exam: Shingles 07/14/18 05:10 Nursing Referral for Wound Care Routine Comment: Physician Instructions: Reason For Exam: wound eval Hospital Course - Lab Results Lab Results: Micro Results 07/13/18 12:00 Blood-Venous Blood Culture - Preliminary NO GROWTH AFTER 48 HOURS 07/13/18 11:30 Blood-Venous Blood Culture - Preliminary NO GROWTH AFTER 48 HOURS Most Recent Lab Values WBC 6.8 10^3/uL (4.5-11.0) 07/15/18 07:45 RBC 3.44 10^6/uL (3.5-6.1) L 07/15/18 07:45 Hgb 10.9 g/dL (12.0-16.0) L 07/15/18 07:45 Hct 33.1 % (36.0-48.0) L 07/15/18 07:45 MCV 96.2 fl (80.0-105.0) 07/15/18 07:45 MCH 31.7 pg (25.0-35.0) 07/15/18 07:45 MCHC 32.9 g/dl (31.0-37.0) 07/15/18 07:45 RDW 14.8 % (11.5-14.5) H 07/15/18 07:45 Plt Count 233 10^3/uL (120.0-450.0) 07/15/18 07:45 MPV 9.8 fl (7.0-11.0) 07/15/18 07:45 Neut % (Auto) 48.5 % (50.0-68.0) L 07/15/18 07:45 Lymph % (Auto) 38.0 % (22.0-35.0) H 07/15/18 07:45 Lanier % (Auto) 8.9 % (1.0-6.0) H 07/15/18 07:45 Eos % (Auto) 4.3 % (1.5-5.0) 07/15/18 07:45 Baso % (Auto) 0.3 % (0.0-3.0) 07/15/18 07:45 Lymph # (Auto) 2.6 (1.2-3.4) 07/15/18 07:45 Lanier # (Auto) 0.6 (0.1-0.6) 07/15/18 07:45 Eos # (Auto) 0.3 (0.0-0.7) 07/15/18 07:45 Baso # (Auto) 0.02 K/mm3 (0.0-2.0) 07/15/18 07:45 Absolute Neuts (auto) 3.29 (1.4-6.5) 07/15/18 07:45 Sodium 139 mmol/L (132-148) 07/15/18 07:45 Potassium 4.1 mmol/L (3.6-5.0) 07/15/18 07:45 Chloride 109 mmol/L (98-107) H 07/15/18 07:45 Carbon Dioxide 28 mmol/L (21-33) 07/15/18 07:45 Anion Gap 7 (10-20) L 07/15/18 07:45 BUN 6 mg/dL (7-21) L 07/15/18 07:45 Creatinine 0.6 mg/dl (0.7-1.2) L 07/15/18 07:45 Est GFR ( Amer) > 60 07/15/18 07:45 Est GFR (Non-Af Amer) > 60 07/15/18 07:45 Random Glucose 102 mg/dL (70-110) 07/15/18 07:45 Calcium 8.0 mg/dL (8.4-10.5) L 07/15/18 07:45 Phosphorus 3.9 mg/dL (2.5-4.5) 07/13/18 06:30 Magnesium 1.8 mg/dL (1.7-2.2) 07/13/18 06:30 Total Bilirubin 0.2 mg/dL (0.2-1.3) 07/15/18 07:45 AST 19 U/L (14-36) 07/15/18 07:45 ALT 15 U/L (7-56) 07/15/18 07:45 Alkaline Phosphatase 70 U/L (38-126) 07/15/18 07:45 Total Protein 5.8 g/dL (5.8-8.3) 07/15/18 07:45 Albumin 2.8 g/dL (3.0-4.8) L 07/15/18 07:45 Globulin 3.0 gm/dL 07/15/18 07:45 Albumin/Globulin Ratio 0.9 (1.1-1.8) L 07/15/18 07:45 Procalcitonin < 0.05 NG/ML (0.19-0.49) L 07/13/18 07:00 Free T4 1.33 ng/dL (0.78-2.19) 07/14/18 08:00 Free T3 pg/mL 3.22 pg/mL (2.77-5.27) 07/14/18 10:25 TSH 3rd Generation 0.23 mIU/mL (0.46-4.68) L 07/13/18 06:30 Urine Color Yellow (YELLOW) 07/14/18 17:30 Urine Appearance Clear (CLEAR) 07/14/18 17:30 Urine pH 7.5 (4.7-8.0) 07/14/18 17:30 Ur Specific [place] <= 1.005 (1.005-1.035) 07/14/18 17:30 Urine Protein Negative mg/dL (<30 mg/dL) 07/14/18 17:30 Urine Glucose (UA) Negative mg/dL (NEGATIVE) 07/14/18 17:30 Urine Ketones Negative mg/dL (NEGATIVE) 07/14/18 17:30 Urine Blood Trace-intact (NEGATIVE) H 07/14/18 17:30 Urine Nitrate Negative (NEGATIVE) 07/14/18 17:30 Urine Bilirubin Negative (NEGATIVE) 07/14/18 17:30 Urine Urobilinogen 0.2 E.U./dL (<1 E.U./dL) 07/14/18 17:30 Ur Leukocyte Esterase Small Pepito/uL (NEGATIVE) H 07/14/18 17:30 Urine RBC 5 - 10 /hpf (0-2) H 07/14/18 17:30 Urine WBC 5 - 10 /hpf (0-6) H 07/14/18 17:30 Ur Epithelial Cells 10 - 12 /hpf (0-5) H 07/14/18 17:30 Attending/Attestation - Attestation I have personally seen and examined this patient.: Yes I have fully participated in the care of the patient.: Yes I have reviewed all pertinent clinical information, including history, physical exam and plan: Yes
--- NOTE | 2018-07-15 13:37 | PN ---
DATE: 07/15/2018 SUBJECTIVE: The patient is in bed, in no acute distress, nontoxic. PHYSICAL EXAMINATION: VITAL SIGNS: Temperature is 98, blood pressure is 100/50, respiratory 16. HEENT: Unremarkable. NECK: Supple. LUNGS: Decreased breath sounds. HEART: Normal S1, S2. ABDOMEN: Soft. LABORATORY DATA: White count of 6.8, hemoglobin of 10. Chemistries are noted. Microbiology is noted and blood cultures. ASSESSMENT AND PLAN: This is an 82-year-old who was seen earlier today in 578, bed 1 with facial skin infection, appears to be improving. Made her discontinue on p.o. acyclovir and p.o. Augmentin as discussed with house staff. Both for 7 days. Zelalem Zapien MD
[2018-07-15] MEDS ORDERED: Amoxicillin-Clav 875-125 mg Tab PO SCH (22:00)
== END 2018-07-15 16:24 | disposition home or self-care (01) | DRG 596 ==
LOC: ED 11:26 → ERH 13:51 → 5RSO 15:07
PROVIDERS: ADMIT Internal Medicine; ATTEND Internal Medicine
DX: B02.9 Zoster without complications (principal); L03.211 Cellulitis of face; I10 Essential (primary) hypertension; F02.80 Dementia in other diseases classified elsewhere, unspecified severity, without behavioral disturbance, psychotic disturbance, mood disturbance, and anxiety; G30.9 Alzheimer's disease, unspecified; K59.09 Other constipation; I48.91 Unspecified atrial fibrillation; E66.9 Obesity, unspecified; Z86.718 Personal history of other venous thrombosis and embolism; E78.00 Pure hypercholesterolemia, unspecified; R33.9 Retention of urine, unspecified; Z68.37 Body mass index [BMI] 37.0-37.9, adult; Z78.9 Other specified health status; Z79.01 Long term (current) use of anticoagulants; Z80.0 Family history of malignant neoplasm of digestive organs; Z82.0 Family history of epilepsy and other diseases of the nervous system; Z95.828 Presence of other vascular implants and grafts